=== PATIENT | female | born 1955 | race Caucasian/White ===

== ENCOUNTER → 2017-07-03 | Outpatient (CLI) | payer BC ==
--- NOTE | 2017-07-03 16:25 | XR ---
EXAMINATION TYPE: XR lumbar spine 2 or 3V DATE OF EXAM: 07/03/2017 COMPARISON: NONE HISTORY: Radiculopathy twisting injury low back pain TECHNIQUE: Three-view lumbar spine FINDINGS: Spondylosis is present. There is loss of disc height throughout the lumbar spine. Vacuum di sc phenomenon is present L3-4 L4-5. Alignment appears normal. Vertebral body heights are preserved. IMPRESSION: 1. Degenerative disc changes through the lumbar spine.
== END | disposition home or self-care (01) ==
LOC: RADXRMAIN 15:42
PROVIDERS: ATTEND Family Medicine
DX: M47.26 Other spondylosis with radiculopathy, lumbar region (principal)
CPT/HCPCS: 72100

== ENCOUNTER → 2022-08-10 | Outpatient (CLI) | payer MEDICARE ==
[2022-08-10 17:34] LABS: African American GFR (CKD) >90 (>60 ml/min/1.73 sqM); Blood Urea Nitrogen 15 mg/dL (7-17); Non-African American GFR(CKD) >90 (>60 ml/min/1.73 sqM)
--- NOTE | 2022-08-10 18:13 | CT ---
EXAMINATION TYPE: CT angio chest DATE OF EXAM: 08/10/2022 COMPARISON: none HISTORY: elevated d-dimer. CONTRAST: CT chest with contrast and 3D reconstruction with MIP imaging is performed with IV Contrast, patient injected with 60 mL of Isovue 370. Contrast-enhanced CT of the chest was performed through the course of the pulmonary arteries with quoc g and mediastinal window settings submitted. 3D reconstruction with MIP imaging was also performed. PULMONARY ARTERIES: The pulmonary arteries and their major tributaries are patent. I do not see machelle dence for sizable filling defect to suggest pulmonary embolic process. LUNGS: Scattered groundglass infiltrates may reflect acute inflammatory process. No evidence for atel ectasis. No pulmonary nodule or mass is detected. No pleural effusion. MEDIASTINUM: Thoracic aorta is of normal caliber,however, evaluation is limited given timing of the contrast bolus. If there is concern for thoracic aortic pathology consider GREGORIA. Correlate clinicall y . The heart is not enlarged. No evidence for mediastinal mass. No mediastinal lymph nodes greater than 1cm. HILAR STRUCTURES: No evidence for mass. No hilar lymph nodes greater than 1 cm. UPPER ABDOMEN: No significant abnormality is seen. IMPRESSION: 1. No evidence for Pulmonary embolism at this time.
== END | disposition home or self-care (01) ==
LOC: RADCTMAIN 17:03
PROVIDERS: ATTEND Family Medicine
DX: R06.02 Shortness of breath (principal); R79.89 Other specified abnormal findings of blood chemistry
CPT/HCPCS: 82565; 84520; 71275; 36415; Q9967

== ENCOUNTER → 2022-08-21 | Outpatient (CLI) | payer MEDICARE ==
--- NOTE | 2022-08-21 11:38 | CA ---
Stress Echo Report Lia Kenyon Age: 67 Gender: F : 1955 Exam Date: 08/21/2022 10:23 Exam Location: [place] [facility] Ht (in): 60 Wt (lb): 123 Ordering Physician: Dayana Lee MD Referring Physician: HEBERT, Residential Subcontractor: KENIA Technologist Procedure CPT: Indication: R06.02 SOB ICD-9 Codes: Rhythm: Patient History: Cardiac Medications: Medications in past 24 hours: Contrast: Stress Results Protocol: Ryan Total dose(mL): Exercise Duration (min:sec): Max ST Depression (mm): Angina Score: Carrillo Score: METS: 3.4 Resting HR: 72 Resting BP: 152 / 62 Peak HR: 133 Peak BP: 178 / 78 Max Predicted HR: 152 87 % Max Predicted HR Target HR: 129 Double Product: [id number] Stress Summary: BP Response: Reason for Termination: Reached target heart rate or work-load Cardiac Symptoms: Dyspnea ECG Analysis Resting ECG: Normal sinus rhythm normal axis normal intervals Stress ECG: Patient exercised on Ryan protocol for 2 minutes achieving 3 mets 85% of predicted maximal heart rate without chest pain test was stopped because patient became extremely short of breath. There was no significant ST segment depression Arrhythmia: None Echo Analysis Resting Echo: Normal left ventricular size akinetic basal inferior wall suggestive of prior myocardial infarction with mild LV dysfunction with an ejection fraction of 45-50% Peak Echo Analysis: There is exercise induced wall motion abnormality involving mid to distal anterior wall and anteroapical wall basal inferior wall remains unchanged MEASUREMENTS (Male/Female) Normal Values CONCLUSIONS Poor exercise tolerance Negative stress test by EKG criteria Abnormal stress echo with evidence of prior inferior wall myocardial infarction and exercise induced wall motion abnormality in LAD distribution Results were conveyed to the primary care physician. Patient was started on aspirin nitrates and beta blockers. Patient will check a lipid profile and will start on lipid-lowering agents I advised her to undergo cardiac catheterization. Once the patient makes up her mind we will go ahead and schedule it. Dr. Prem Barriga MD (Electronically Signed) Final Date: 21 August 2022 11:37
--- NOTE | 2022-08-22 17:29 | CA ---
Transthoracic Echo Report Name: Lia Kenyon Age: 67 Gender: F : 1955 Exam Date: 08/21/2022 10:56 Exam Location: [place] [facility] Ht (in): 60 Wt (lb): 123 Ordering Physician: Dayana Lee MD Attending/Referring Phys: Matchbook Assembler Kelsie Fischer RDCS Procedure CPT: Indications: SHORTNESS OF BREATH Cardiac Hx: Technical Quality: Fair Contrast 1: Total Dose (mL): Contrast 2: Total Dose (mL): MEASUREMENTS (Male / Female) Normal Values 2D ECHO LV Diastolic Diameter PLAX 3.0 cm 4.2 - 5.9 / 3.9 - 5.3 cm LV Systolic Diameter PLAX 1.6 cm IVS Diastolic Thickness 1.2 cm 0.6 - 1.0 / 0.6 - 0.9 cm LVPW Diastolic Thickness 0.9 cm 0.6 - 1.0 / 0.6 - 0.9 cm LV Relative Wall Thickness 0.7 RV Internal Dim ED PLAX 2.9 cm LA Volume 19.8 cm??? 18 - 58 / 22 - 52 cm??? M-MODE Aortic Root Diameter MM 2.4 cm LA Systolic Diameter MM 3.4 cm LA Ao Ratio MM 1.4 AV Cusp Separation MM 1.9 cm DOPPLER AV Peak Velocity 115.7 cm/s AV Peak Gradient 5.4 mmHg AV Mean Velocity 75.2 cm/s AV Mean Gradient 2.6 mmHg AV Velocity Time Integral 22.3 cm LVOT Peak Velocity 72.7 cm/s LVOT Peak Gradient 2.1 mmHg LVOT Velocity Time Integral 17.4 cm MV Area PHT 3.3 cm??? Mitral E Point Velocity 76.2 cm/s Mitral A Point Velocity 105.3 cm/s Mitral E to A Ratio 0.7 MV Deceleration Time 228.9 ms MV E' Velocity 4.4 cm/s Mitral E to MV E' Ratio 17.3 TR Peak Velocity 249.3 cm/s TR Peak Gradient 24.9 mmHg Right Ventricular Systolic Press 29.2 mmHg FINDINGS Left Ventricle Mildly increased left ventricular wall thickness. Left ventricular cavity size normal. Decreased basal systolic function. Hypokinetic inferior wall. Left ventricular ejection fraction is estimated at 45-50 %. Right Ventricle Normal right ventricular size and function. Right ventricular systolic pressure within normal limits. Right Atrium Normal right atrial size. Left Atrium Normal left atrial size. Mitral Valve Structurally normal mitral valve. Aortic Valve No aortic valve stenosis or regurgitation. Tricuspid Valve Structurally normal tricuspid valve. Mild tricuspid regurgitation. Pulmonic Valve Trace pulmonic regurgitation. Pericardium No pericardial effusion. Aorta Normal size aortic root and proximal ascending aorta. CONCLUSIONS Mild LV dysfunction Inferior wall is hypokinetic suggestive of prior myocardial infarction Previewed by: German Ritter MD Dr. Suresh Tumma MD (Electronically Signed) Final Date: 22 August 2022 17:28
== END | disposition home or self-care (01) ==
LOC: RADNMMAIN 09:44
PROVIDERS: ATTEND Family Medicine
DX: I21.11 ST elevation (STEMI) myocardial infarction involving right coronary artery (principal); R94.39 Abnormal result of other cardiovascular function study; R06.02 Shortness of breath
CPT/HCPCS: 93306; 93351

== ENCOUNTER → 2022-08-21 | Outpatient (CLI) | payer MEDICARE ==
[2022-08-21 16:43] LABS: HCT 47.8 % (37.2-46.3); HGB 16.2 d/dL (12.0-15.0); MCH 34.2 pg (27.0-32.0); MCHC 33.9 d/dL (32.0-37.0); MCV 100.8 FL (80.0-97.0); Mean Platelet Volume 10.4 FL (9.5-12.2); NRBC Per 100 WBC 0 X 10*3/uL (0.00-0.01); Platelet Count 200 X 10*3/uL (140-440); RBC 4.74 X 10*6/uL (4.10-5.20); RDW 12.5 % (11.5-14.5); WBC 4.67 X 10*3/uL (4.50-10.00)
[2022-08-21 16:45] LABS: ALT 16 U/L (8-44); AST 21 U/L (13-35); Blood Urea Nitrogen 16.7 mg/dL (9.0-27.0); Carbon Dioxide 29.2 mmol/L (21.6-31.8); Chloride 103 mmol/L (96-109); Chol/HDL Ratio 1.98 Ratio; Sodium 143 mmol/L (135-145); VLDL Calculation 17.96 mg/dL (5.00-40.00)
== END | disposition home or self-care (01) ==
LOC: LABWHC1 11:20
PROVIDERS: ATTEND Internal Medicine Cardiovascular Disease
DX: R06.00 Dyspnea, unspecified (principal)
CPT/HCPCS: 36415; 80051; 80061; 82565; 84450; 84460; 84520; 85027

== ENCOUNTER → 2024-01-06 | Outpatient (CLI) | payer MEDICARE ==
--- NOTE | 2024-01-06 07:59 | MM ---
Reason for Exam: Clinical finding. Last mammogram was performed 17 year(s) and 0 month(s) ago. Patient History: Menarche at age 12. First Full-Term at age 18. Postmenopausal. Maternal aunt had breast cancer. Sister had breast cancer. Risk Values: Lamar 5 year model risk: 3.2%. NCI Lifetime model risk: 9.7%. Prior Study Comparison: 12/27/2006 Bilateral Screening Mammogram, [facility]. Tissue Density: There are scattered areas of fibroglandular density. Findings: Analyzed By CAD. Area of asymmetric density lateral anterior right cc view and medial middle depth right cc view do not clearly persist on additional views. Calcifications posterior outer aspect of the left breast may represent early oil cyst/fat necrosis calcifications. Lateral subareolar nodularity in the left breast also does not clearly persist. Overall Assessment: Incomplete: need additional imaging evaluation, BI-RAD 0 Management: Diagnostic Breast Ultrasound of the left breast. [facility], , 01/06/2024 7:56 AM. Electronically signed and approved by: José Miguel Castellanos M.D. Radiologist
--- NOTE | 2024-01-06 08:17 | USB ---
Reason for Exam: Clinical finding. Patient History: Menarche at age 12. First Full-Term at age 18. Postmenopausal. Maternal aunt had breast cancer. Sister had breast cancer. Risk Values: Lamar 5 year model risk: 3.2%. NCI Lifetime model risk: 9.7%. Technique: Method: Targeted. Prior Study Comparison: 11/15/2000 Bilateral Screening Mammogram, [facility]. 12/25/2000 Right Special View Mammogram, [facility]. 12/27/2006 Bilateral Screening Mammogram, [facility]. Findings: The upper outer quadrant of the left breast, the axilla of the left breast and the retroareolar of the left breast were scanned. Targeted ultrasound left breast upper outer quadrant 12:00 to 4:00 including scanning of the subareolar region and axilla. At the 12:00 site indicated by the patient at the site of previous bruising, 5 cm from the nipple, there is a benign 5 x 4 x 1 mm cyst. No other solid or cystic lesion or axillary lymphadenopathy. Overall Assessment: Probably benign, BI-RAD 3 Management: Diagnostic Mammogram of both breasts in 6 months. For the bilateral asymmetric densities and left sided calcifications. Patient should continue monthly self breast exams and can be rescanned if any new or enlarging palpable area develops. Results were given to the patient verbally at the time of exam. [facility], , 01/06/2024 8:14 AM. Electronically signed and approved by: José Miguel Castellanos M.D. Radiologist
== END | disposition home or self-care (01) ==
LOC: RADMAMWWP 06:56
PROVIDERS: ATTEND Family Medicine
DX: N63.0 Unspecified lump in unspecified breast (principal); Z78.0 Asymptomatic menopausal state; Z80.3 Family history of malignant neoplasm of breast; R92.323 Mammographic fibroglandular density, bilateral breasts
CPT/HCPCS: 77066; 76642; G0279; 77062